=== PATIENT | male | born 1975 | race Hispanic/Latino ===

== ENCOUNTER → 2017-06-28 | Outpatient (CLI) | payer OTHER ==
--- NOTE | 2017-06-30 06:46 | ECHO ---
DATE OF STUDY: 06/28/2017 REFERRING PROVIDER: GINGER Cardenas INDICATION: Dyspnea. HEIGHT: 163 cm. WEIGHT: 79.4 kg. 2-D MEASUREMENTS: Left atrium: 3.5 cm Aortic root: 3.1 cm Ventricular septum: 1.02 cm Posterior wall: 1.04 cm Left ventricle diastole: 3.6 cm LVOT: 2.3 cm Inferior vena cava: 1.8 cm with normal respiratory variation DOPPLER MEASUREMENTS: Aortic valve velocity: 104 cm/sec LVOT velocity: 92.5 cm/sec LVOT VTI: 17.0 cm Mitral E velocity: 78.0 cm/sec Mitral A velocity 55.8 cm/sec Mitral deceleration time: 151 ms Pulmonary artery systolic pressure: 17 mmHg MITRAL ANNULAR TISSUE DOPPLER: E prime septal: 9.68 cm/sec Mitral annular E velocity lateral: 11.3 cm/sec DESCRIPTION: The rhythm was sinus. Image quality was adequate. This was a 2-D, M-mode, color flow Doppler and pulse wave Doppler examination and included mitral annular tissue Doppler. CONCLUSIONS: 1. Normal echocardiogram Doppler. 2. Normal left ventricle internal dimensions and wall thickness. Normal left ventricle regional wall motion and LV systolic function. Normal LV diastolic function. 3. Suggestive of normal pulmonary artery systolic pressure.
== END ==
LOC: M CARPUL 10:24
PROVIDERS: ATTEND Physician Assistant
DX: R06.02 Shortness of breath (principal)

== ENCOUNTER 2017-08-15 19:17 | Emergency (ER) | payer OTHER ==
[2017-08-15] MEDS: ONDANSETRON 4 MG ORAL DISINTEGRATING TAB (S0181) PO (22:04)
== END 2017-08-15 22:18 | disposition home or self-care (01) ==
LOC: M ED 19:17
DX: A08.4 Viral intestinal infection, unspecified (principal); J45.909 Unspecified asthma, uncomplicated; Z87.891 Personal history of nicotine dependence; Z98.890 Other specified postprocedural states
CPT/HCPCS: 99283